=== PATIENT | male | born 1940 | race African-American/Black ===

== ENCOUNTER 2016-10-10 12:51 | Emergency (ER) | payer MEDICARE, MEDICAID ==
[~2016-10-10] VITALS: Ht 172.7 cm; Wt 80.0 kg
[2016-10-10 14:41] VITALS: BP 136/78
== END 2016-10-10 15:00 | disposition home or self-care (01) ==
LOC: ER 13:21 → CANBEDREQ 19:23
DX: R06.00 Dyspnea, unspecified (principal); R51 Headache; R42 Dizziness and giddiness; M54.2 Cervicalgia; E11.9 Type 2 diabetes mellitus without complications; I11.9 Hypertensive heart disease without heart failure; E78.00 Pure hypercholesterolemia, unspecified; Z88.1 Allergy status to other antibiotic agents
CPT/HCPCS: 99283